=== PATIENT | female | born 1960 | race African-American/Black ===

== ENCOUNTER 2019-10-06 13:06 | Inpatient (IN) | payer BC ==
[~2019-10-06] VITALS: Ht 162.6 cm; Wt 89.6 kg
[2019-10-06 13:09] VITALS: BP 136/84
[2019-10-06] MEDS ORDERED: METFORMIN HCL500 M3 PO (13:43)
[2019-10-06] MEDS ORDERED: ASA81BEC PO (13:44)
[2019-10-06] MEDS ORDERED: ZESTRIL5 MG PO (13:44)
[2019-10-06] MEDS ORDERED: KAPSPARGO SPRIN25 MG PO (13:44)
[2019-10-06] MEDS ORDERED: LIPITOR 20 MG T20 M1 PO (13:44)
[2019-10-06 14:10] LABS: ABSOLUTE NEUTROPHILS 9.5 thou/uL (1.4-8.2); BASOPHILS 0.4 % (0.0-2.0); EOSINOPHILS 0.1 % (0.0-3.0); HEMATOCRIT 38.6 % (37.0-47.0); HEMOGLOBIN 12.7 gm/dL (12.0-15.0); LYMPHOCYTES 14.6 % (24.0-44.0); MCH 26.2 pg (26.0-34.0); MCHC 32.8 g/dL (28.0-37.0); MONOCYTES 9.3 % (1.0-8.0); PLATELET COUNT 359 thou/uL (150-400); POLYS 75.6 % (36.0-66.0); RBC 4.83 mil/uL (4.20-5.00); WBC 12.5 thou/uL (4.0-11.0)
[2019-10-06 14:28] LABS: ANION GAP 10 mmol/L (7-16); BUN 17 mg/dL (7-18); CALCIUM 10.2 mg/dL (8.5-10.1); CHLORIDE 97 mmol/L (98-107); CO2 26 mmol/L (21-32); CREATININE 1.1 mg/dL (0.6-1.0); GLUCOSE 191 mg/dL (74-106); POTASSIUM 3.9 mmol/L (3.5-5.1); SODIUM 133 mmol/L (136-145)
[2019-10-06 14:37] LABS: ALBUMIN 3.6 g/dL (3.4-5.0); SGOT 15 U/L (15-37); SGPT 20 U/L (30-65); TOTAL BILIRUBIN 0.3 mg/dL (0.2-1.0); TOTAL PROTEIN 8.9 g/dL (6.4-8.2); TROPONIN-I <0.06 ng/mL (<0.06)
[2019-10-06 16:18] VITALS: BP 146/72
--- NOTE | 2019-10-06 16:35 | NUR ---
ATTEMPTED TO CALL REPORT TO TANJA NEVAREZ; WAS TOLD RN IS IN A ROOM AND WAS PLACED ON HOLD FOR 5MIN BEFORE HANGING UP; WILL CALL AGAIN IN 5MIN
[2019-10-06 17:30] VITALS: BP 146/72
[2019-10-06 17:38] LABS: FOLIC ACID 18.9 ng/mL (8.6-58.9)
--- NOTE | 2019-10-06 17:44 | NUR ---
REC PT FROM ED, SHE IS A&OX4, CARDIAC MONITORED, DM; PERFORMING ADMISSION AND WILL CHECK ORDERS FOR IVF AND DIET ORDER. INTRO TO ROOM AND CALL LIGHT. SEE SEPARATE INTERVENTIONS FOR ASSESSMENTS. LAC IV. WILL CONTINUE TO MONITOR
[2019-10-06 17:45] VITALS: BP 142/74
[2019-10-06 18:25] LABS: HEMATOCRIT 37.6 % (37.0-47.0); HEMOGLOBIN 12.1 gm/dL (12.0-15.0); MCHC 32.1 g/dL (28.0-37.0); MCV 81.1 fL (80.0-100.0); RBC 4.64 mil/uL (4.20-5.00); RDW 16.9 % (10.5-14.5); WBC 12.1 thou/uL (4.0-11.0)
[2019-10-06] MEDS ORDERED: VYZULTA5 ML OPHTHALMIC (18:32)
[2019-10-06 19:00] VITALS: BP 132/90
[2019-10-06 20:31] LABS: PROTIME 10.3 Seconds (9.3-11.4)
[2019-10-06 20:38] LABS: APTT 148.7 Seconds (24.5-32.8)
[2019-10-06 23:56] VITALS: BP 135/80
[2019-10-07 02:33] LABS: ABSOLUTE NEUTROPHILS 4.8 thou/uL (1.4-8.2); BASOPHILS 0.8 % (0.0-2.0); EOSINOPHILS 0.3 % (0.0-3.0); HEMATOCRIT 35.8 % (37.0-47.0); HEMOGLOBIN 11.3 gm/dL (12.0-15.0); LYMPHOCYTES 31.9 % (24.0-44.0); MCH 25.8 pg (26.0-34.0); MCHC 31.5 g/dL (28.0-37.0); MCV 81.8 fL (80.0-100.0); MONOCYTES 11.9 % (1.0-8.0); POLYS 55.1 % (36.0-66.0); RBC 4.37 mil/uL (4.20-5.00); RDW 16.8 % (10.5-14.5); WBC 8.6 thou/uL (4.0-11.0)
[2019-10-07 02:34] LABS: PLATELET COUNT 262 thou/uL (150-400)
[2019-10-07 02:50] LABS: ANION GAP 6 mmol/L (7-16); BUN 20 mg/dL (7-18); CALCIUM 9.3 mg/dL (8.5-10.1); CHLORIDE 101 mmol/L (98-107); CO2 28 mmol/L (21-32); CREATININE 0.9 mg/dL (0.6-1.0); GLUCOSE 118 mg/dL (74-106); MAGNESIUM 1.6 mg/dL (1.8-2.4); POTASSIUM 4.1 mmol/L (3.5-5.1); SODIUM 135 mmol/L (136-145); TROPONIN-I <0.06 ng/mL (<0.06)
[2019-10-07 04:05] VITALS: BP 147/83
--- NOTE | 2019-10-07 07:39 | NUR ---
PATIENT IS PROGRESSING SLOWLY IN HER CARE PLAN. VITAL SIGNS STABLE WITH PATIENT HAVING NO COMPLAINTS OF NAUSEA. PATIENT DID COMPLAIN OF PAIN IN CHEST FROM PE AND WAS TREATED APPROPRIATELY THROUGH MEDICATIONS. FULLY ALERT AND ORIENTED, PATIENT IS ABLE TO CALL APPROPRIATELY AND PARTICIPATE IN CARE. HEPARIN GTT PER PROTOCOL. PATIENT HAS BEEN ABLE TO AMBULATE AD NISHI INCIDENT FREE. CONTINUE PLAN OF CARE.
[2019-10-07 08:05] VITALS: BP 154/86
--- NOTE | 2019-10-07 08:06 | NUR ---
ASSUMED CARE OF PT AT SHIFT CHANGE, REORTS OF NEXT APTT EARLY THIS A.M. WILL CHECK ONCE LAB DRAWS/SPIS. ENCOURAGED PT TO USE CALL LIGHT FOR ANY NEEDS. RATING PAIN OF CHEST/BACK AROUND 5-8, TALKS TOO MUCH SHE SAID IT'S HARD TO BREATHE, ENCOURAGED HER W/THE DEEP SLOW LONG INHALATION/EXHALATION. LET HER KNOW WHEN/WHAT MEDS ARE AVAILABLE. SEE SEPARATE INTERVENTIONS FOR ASSESSMENTS. PT IN GOOD SPIRITS/JOVIAL. WILL CONTINUE TO MONITOR
[2019-10-07 11:50] VITALS: BP 124/71
--- NOTE | 2019-10-07 14:13 | NUR ---
Case discussed with the care team. No cm interventions indicated. Pt is indep and has health insurance for scripts and f/u care at dc. Will remain available should dc needs arise. Pt currently on heprin gtt for PE. Up ad shai in her room.
--- NOTE | 2019-10-07 14:39 | 2DMMODE ---
[facility] [place] [address] 2 D/M-MODE ECHOCARDIOGRAM Name: KARIE WATTS Room #: 209-P ADM IN M.R.#: [id number] Admission: 10/06/19 Attend Phys: Gigi Hutton MD Discharge: Date of : 64 Report #: [id number] THIS REPORT FOR: cc: FAM - No family physician/PCP FAM - No family physician/PCP Daniel Denise MD ~ APPROVED REPORT Study performed: 10/07/2019 13:55:16 EXAM: Comprehensive 2D, Doppler, and color-flow Echocardiogram Patient Location: Bedside Room #: 209 Status: routine BSA: 1.97 HR: 69 bpm BP: 124/71 mmHg Rhythm: NSR Other Information Study Quality: Good Indications Pulmonary Embolism Diabetes CAD Chest Pain Hypertension/HDD 2D Dimensions IVSd: 7.71 (7-11mm) LVOT Diam: 19.04 (18-24mm) LVDd: 46.05 mm PWd: 9.13 (7-11mm) Ascending Ao: 31.06 (22-36mm) LVDs: 32.96 (25-40mm) Aortic Root: 28.95 mm IVC: 8.00 mm Volumes Left Atrial Volume (Systole) Single Plane 4CH: 40.75 mL Single Plane 2CH: 41.05 mL LA ESV Index: 23.00 mL/m2 Aortic Valve AoV Peak Eulogio.: 1.24 m/s AO Peak Gr.: 6.16 mmHg LVOT Max P.88 mmHg [facility] [address] [address] 2 D/M-MODE ECHOCARDIOGRAM Name: ZENAIDA WATTSDRA Room #: 209-P [facility] IN M.R.#: [id number] Admission: 10/06/19 Attend Phys: Gigi Hutton MD Discharge: Date of : 64 Report #: [id number] LVOT Max V: 0.99 m/s NATALIE Vmax: 2.26 cm2 Mitral Valve E/A Ratio: 1.2 MV Decel. Time: 198.58 ms MV E Max Eulogio.: 1.00 m/s MV A Eulogio.: 0.84 m/s MV PHT: 57.59 ms IVRT: 87.66 ms Pulmonary Valve PV Peak Eulogio.: 0.94 m/s PV Peak Gr.: 3.54 mmHg Pulmonary Vein P Vein S: 0.49 m/s P Vein A: 0.32 m/s P Vein D: 0.36 m/s P Vein A Dur.: 83.0 msec P Vein S/D Ratio: 1.36 Tricuspid Valve TR Peak Eulogio.: 2.52 m/s TR Peak Gr.: 25.37 mmHg PA Pressure: 30.00 mmHg Left Ventricle The left ventricle is normal size. There is normal LV segmental wall motion. There is normal left ventricular wall thickness. Left ventricular systolic function is normal. The left ventricular ejection fraction is within the normal range. LVEF is 55-60%. Right Ventricle The right ventricle is normal size. The right ventricular systolic function is normal. Atria The left atrium size is normal. The right atrium size is normal. Aortic Valve The aortic valve is normal in structure. No aortic regurgitation is present. There is no aortic valvular stenosis. Mitral Valve The mitral valve is normal in structure. There is no mitral valve regurgitation noted. No evidence of mitral valve stenosis. [facility] [address] [place] [address] 2 D/M-MODE ECHOCARDIOGRAM Name: KARIE WATTS Room #: 209-P ADM IN M.R.#: [id number] Admission: 10/06/19 Attend Phys: Gigi Hutton MD Discharge: Date of : 64 Report #: [id number] Tricuspid Valve The tricuspid valve is normal in structure. There is trace tricuspid regurgitation. Estimated PAP 30 mmHg. Pulmonic Valve The pulmonary valve is normal in structure. There is no pulmonic valvular regurgitation. Great Vessels The aortic root is normal in size. IVC is normal in size and collapses >50% with inspiration. Pericardium There is no pericardial effusion. <Conclusion> The left ventricle is normal size. There is normal left ventricular wall thickness. Left ventricular systolic function is normal. The right ventricle is normal size. The left atrium size is normal. The aortic valve is normal in structure. There is no mitral valve regurgitation noted. There is trace tricuspid regurgitation. Estimated PAP 30 mmHg. <ELECTRONICALLY SIGNED> By: Daniel Denise MD 10/07/19 1438 1438 1438 Daniel Denise MD /INF
--- NOTE | 2019-10-07 16:10 | EKG ---
[facility] [place] [address] ELECTROCARDIOGRAM REPORT Name: KARIE WATTS Room #: 209-P ADM IN M.R.#: [id number] Admission: 10/06/19 Attend Phys: Gigi Hutton MD Discharge: Date of : 64 Report #: [id number] THIS REPORT FOR: cc: NELSON - Darya family physician/PCP NELSON - Darya family physician/PCP Obdulio Jimenez MD [facility] ~ THIS REPORT FOR: //name// [facility] ED Test Date: 2019-10-06 Test Time: 13:15:52 Pat Name: KARIE WATTS Department: Room: 209 Gender: F Hat Body Sorter: ZAY : 1960 Requested By: Samuel Nickerson Order Number: [id number] MD: Obdulio Jimenez Measurements Intervals [place] Rate: 97 P: 44 WV: 141 QRS: -18 QRSD: 83 T: 4 QT: 377 QTc: 479 Interpretive Statements Sinus rhythm Left atrial enlargement Abnormal R-wave progression, late transition Nonspecific T wave abnormality Inferior infarct, old No previous ECG available for comparison Electronically Signed On 10-07-2019 16:10:46 CDT by Obdulio Jimenez [email or web address] <ELECTRONICALLY SIGNED> By: Obdulio Jimenez MD, [facility] 10/07/19 1610 1315 1315 Obdulio Jimenez MD, [facility] /EPI
[2019-10-07 17:05] VITALS: BP 135/58
[2019-10-07 20:00] VITALS: BP 141/76
[2019-10-08 00:10] VITALS: BP 145/76
--- NOTE | 2019-10-08 00:45 | NUR ---
PT IS ALERT AND ORIENTED X4. LUNGS ARE CLEAR ON ROOM AIR. NO SHORTNESS OF BREATH NOTED. UP TO BEDSIDE COMMODE. VOIDING CLEAR YELLOW URINE. NORMAL SINUS RHYTHMON HEPARIN DRIP PROTACAL FOR PE. PTT DRAWN AND AJUSTED PER RESULT. DENIES ANY PAIN AT THIS TIME. WATCHING TV AND RESTING AT NIGHT CALL LIGHT WITHIN REACH IF NEEDS ASSISTANCE PER NURSING
[2019-10-08 08:05] VITALS: BP 141/84
--- NOTE | 2019-10-08 11:22 | NUR ---
ASSUMED CARE OF PT AT SHIFT CHANGE, IN GOOD SPIRITS, HAVING A LITTLE LESS CHEST/BACK PAIN. HEP GTT. NEXT APTT NOT ORDERED, ENTERED IT ONCE DISCOVERED AND MADE STAT. LAST WAS THERAPEUTIC. SEE SEPARATE INTERVENTIONS FOR ASSESSMENTS. WILL CONTINUE TO MONITOR
[2019-10-08 11:55] VITALS: BP 139/80
[2019-10-08 16:45] VITALS: BP 132/76
[2019-10-08 20:00] VITALS: BP 149/86
[2019-10-09 00:30] VITALS: BP 150/84
--- NOTE | 2019-10-09 04:06 | NUR ---
PT IS ALET AND ORIENTED X4. LUNGS ARE CLEAR. UP TO BEDSIDE COMMODE. DENIES ANY COMPLAINTS OF PAIN THIS EVENING. HEPRIN DRIP FOR PE PROPHALACTIC. PT HAS BEEN SLEEPING AND WATCHING TV. REGULATE HEPARIN BASED ON RESULTS OF PTT. CALL LIGHT WITH IN REACH IF NEEDS ASISTANCE FRO STAFF.
[2019-10-09 05:00] VITALS: BP 136/83
[2019-10-09 05:12] LABS: HEMATOCRIT 36.4 % (37.0-47.0); HEMOGLOBIN 11.5 gm/dL (12.0-15.0); MCH 25.4 pg (26.0-34.0); MCHC 31.5 g/dL (28.0-37.0); MCV 80.6 fL (80.0-100.0); RBC 4.52 mil/uL (4.20-5.00); RDW 16.3 % (10.5-14.5); WBC 6.4 thou/uL (4.0-11.0)
[2019-10-09 07:55] VITALS: BP 171/92
[2019-10-09 12:10] VITALS: BP 153/10
[2019-10-09 16:00] VITALS: BP 134/80
[2019-10-09] MEDS ORDERED: MIRALAX17 GM PO (16:56)
[2019-10-09] MEDS ORDERED: PANTOPRAZOLE SO40 M1 PO (16:57)
[2019-10-09] MEDS ORDERED: B-12500 MCG SUBLING (16:57)
[2019-10-09] MEDS ORDERED: ENOXAPARIN100 MG/11 SUBQ (17:00)
[2019-10-09] MEDS ORDERED: WARFARIN SODIUM5 MG PO (17:01)
--- NOTE | 2019-10-09 18:59 | NUR ---
ASSUMED CARE OF PT AT SHIFT CHANGE. ASSESSMENTS CHARTED. MEDS GIVEN PER MAY. PT A&OX4. C/O PAIN WHEN COUGHING/DEEP BREATHING, DENIED NEED FOR PAIN MEDS. DISCHARGE PLANNED FOR MORNING. TEACH PT TO SELF ADMINISTER LOVENOX BEFORE DISCHARGE. WILL CONTINUE TO MONITOR.
[2019-10-09 19:50] VITALS: BP 143/77
[2019-10-10 05:04] VITALS: BP 136/88
[2019-10-10 05:18] LABS: CALCIUM 9.8 mg/dL (8.5-10.1); CREATININE 0.9 mg/dL (0.6-1.0); MAGNESIUM 1.7 mg/dL (1.8-2.4); POTASSIUM 4.5 mmol/L (3.5-5.1)
[2019-10-10 05:28] LABS: HEMATOCRIT 37.2 % (37.0-47.0); HEMOGLOBIN 12.1 gm/dL (12.0-15.0); MCH 26.3 pg (26.0-34.0); MCHC 32.6 g/dL (28.0-37.0); MCV 80.8 fL (80.0-100.0); RBC 4.6 mil/uL (4.20-5.00); RDW 16.8 % (10.5-14.5); WBC 7.3 thou/uL (4.0-11.0)
--- NOTE | 2019-10-10 06:06 | NUR ---
PATIENTS CARES WERE ASSUMED AT SHIFT CHANGE. PATIENT WAS ASSESSED AND MEDS WERE PASSED. PATIENT HAPPY THIS SHIFT AND LOOKING FORWARD TO GOING HOME. HOURLY ROUNDS WERE DONE. PATIENT DID SLEEP ABOUT SEVEN TOTAL HOURS. THE BED IS IN A LOW AND LOCKED POSITION
[2019-10-10 08:10] VITALS: BP 123/97
[2019-10-10 12:15] VITALS: BP 130/85
[2019-10-10] MEDS ORDERED: ELIQUIS5 M1 PO (15:39)
[2019-10-10] MEDS ORDERED: ELIQUIS5 MG PO (15:39)
[2019-10-10 15:47] VITALS: BP 130/85
[2019-10-10 17:26] VITALS: BP 130/85
--- NOTE | 2019-10-10 17:27 | NUR ---
ASSUMED CARE OF PT AT SHIFT CHANGE. ASSESSMENTS CHARTED. MEDS GIVEN PER MAY. PT A&OX4, NO C/O PAIN OR SOA. DISCHARGE ORDERS AND INSTRUCTIONS COMPLETE. TELE AND IV DC'D. PT LEFT WITH THIS NURSE IN WHEELCHAIR TO FAMILY WAITING IN CAR AT ER ENTRANCE.
== END 2019-10-10 16:24 | disposition home or self-care (01) | DRG 176 ==
LOC: ER 13:06 → 2N 16:16 → EROBS 16:16 → 2N 17:20
PROVIDERS: Emergency Medicine; Internal Medicine; Nurse Practitioner; Nurse Practitioner Family; ADMIT Hospitalist; ATTEND Hospitalist
DX: I26.99 Other pulmonary embolism without acute cor pulmonale (principal); J90 Pleural effusion, not elsewhere classified; E83.42 Hypomagnesemia; E27.9 Disorder of adrenal gland, unspecified; N19 Unspecified kidney failure; I10 Essential (primary) hypertension; E78.5 Hyperlipidemia, unspecified; E11.9 Type 2 diabetes mellitus without complications; I25.2 Old myocardial infarction; Z88.1 Allergy status to other antibiotic agents; Z88.8 Allergy status to other drugs, medicaments and biological substances
CPT/HCPCS: 10081